=== PATIENT | female | born 1925 | race African-American/Black ===

== ENCOUNTER 2016-11-16 05:44 | Day surgery (SDC) | payer MEDICARE, MEDICAID ==
[~2016-11-16] VITALS: Ht 170.2 cm; Wt 72.3 kg
[~2016-11-16 05:44] MED LIST: ALLO100T PO; ASCO500 PO; ASPI81 PO; ATOR20TA86 PO; FERR-89 PO; GABA-529 PO; GLIP10 PO; INSLAN SQ; INSNOV SQ; KCL10IV PO; LISI-660 PO; MELO-273 PO; METO25 PO; MULTIPLE VITAMIN PO; PYRI100T2 PO; SODI650T PO; TRAM50TA4 PO; TRAVZOS OU
[2016-11-16] MEDS ORDERED: SODIUM CHLORIDE 0.9% 1,000 ML IV ONE ×2 (05:56→06:00)
[2016-11-16 07:12] LABS: GLUCOSE,POINT OF CARE 163 MG/DL (70-110)
[2016-11-16] MEDS ORDERED: FentaNYL CITRATE-PF 100 MCG/2 ML VIAL ONE (07:18)
[2016-11-16] MEDS ORDERED: MIDAZOLAM HCL 2 MG/2 ML VIAL ONE (07:18)
[2016-11-16] MEDS ORDERED: IOHEXOL 300 MG/ML 10 ML VIAL ONE (07:19)
[2016-11-16] MEDS ORDERED: BUPIVACAINE HCL/PF 0.75% 10 ML VIAL ONE (07:19)
[2016-11-16] MEDS ORDERED: LIDOCAINE HCL/PF 1% 30 ML VIAL ONE (07:19)
[2016-11-16] MEDS ORDERED: LIDOCAINE HCL/PF 2% 5 ML VIAL ONE (07:19)
[2016-11-16] MEDS ORDERED: SODIUM BICARBONATE 50 MEQ/50 ML VIAL ONE (07:20)
[2016-11-16] MEDS ORDERED: DiphenhydrAMINE HCL 50 MG/ML VIAL ONE (07:24)
[2016-11-16] MEDS ORDERED: MethylPREDNISolone SOD SUCC 125 MG/2 ML VIAL ONE (07:53)
[2016-11-16 07:58] VITALS: BP 221/90
[2016-11-16] MEDS ORDERED: DiphenhydrAMINE HCL 50 MG/ML VIAL IVP ONE (07:59)
[2016-11-16] MEDS ORDERED: MethylPREDNISolone SOD SUCC 125 MG/2 ML VIAL IVP ONE (07:59)
[2016-11-16] MEDS ORDERED: LIDOCAINE 1% 30 ML/SOD BICARB 8.4% 4 ML SQ ONE (08:06)
[2016-11-16] MEDS ORDERED: MIDAZOLAM HCL 2 MG/2 ML VIAL IVP ONE (08:08)
[2016-11-16] MEDS ORDERED: TRIAMCINOLONE ACETONIDE 40 MG/ML VIAL ONE (08:09)
[2016-11-16] MEDS ORDERED: IOHEXOL 300 MG/ML 10 ML VIAL IARTIC ONE (08:13)
[2016-11-16] MEDS ORDERED: BUPIVACAINE HCL/PF 0.75% 10 ML VIAL IARTIC ONE (08:17)
[2016-11-16] MEDS ORDERED: TRIAMCINOLONE ACETONIDE 40 MG/ML VIAL IARTIC ONE (08:17)
[2016-11-16 08:51] VITALS: BP 158/65
== END 2016-11-16 10:00 | disposition home or self-care (01) ==
LOC: SDS 05:44
PROVIDERS: ATTEND Specialist
DX: M54.17 Radiculopathy, lumbosacral region (principal); I10 Essential (primary) hypertension; E11.9 Type 2 diabetes mellitus without complications; Z90.710 Acquired absence of both cervix and uterus
CPT/HCPCS: 64483; 64484; 82962; J1200; J2250; J2930; J3301; J3490 ×3; J7030; Q9967; J3010